=== PATIENT | female | born 1975 | race Hispanic/Latino ===

== ENCOUNTER 2022-03-02 19:44 | Emergency (ER) | payer BC, OTHER ==
[~2022-03-02] VITALS: Ht 157.5 cm; Wt 74.8 kg
[2022-03-02] MEDS ORDERED: KETOROLAC TROMETHAMINE 30 MG/ML VIAL IV STA (20:40)
[2022-03-02] MEDS ORDERED: ONDANSETRON HCL INJ 2MG/ML 2ML 2 MG/ML VIAL IV STA (20:43)
[2022-03-02] MEDS ORDERED: INSULIN REGULAR, HUMAN 100 UNIT/1 ML IV ONE (20:45)
[2022-03-02] MEDS ORDERED: SODIUM CHLORIDE 0.9% 1000ML 1,000 ML IV SCH (20:45)
[2022-03-02] MEDS ORDERED: SODIUM CHLORIDE 0.9% 1000ML 1,000 ML ONE (20:55)
[2022-03-02] MEDS ORDERED: KETOROLAC TROMETHAMINE 30 MG/ML VIAL ONE (20:55)
[2022-03-02] MEDS ORDERED: IOPAMIDOL 370 MG/ML 100 ML INFUS..BTL INJ ONE (21:03)
[2022-03-02] MEDS ORDERED: CEFUROXIME500 MG PO (22:57)
[2022-03-02] MEDS ORDERED: AMLODIPINE BESYL5 MG PO (22:59)
[2022-03-02] MEDS ORDERED: METFORMIN HCL500 MG PO (22:59)
[2022-03-02] MEDS ORDERED: CEFTRIAXONE 1 GM VIAL ONE (23:02)
== END 2022-03-02 23:16 | disposition home or self-care (01) ==
LOC: FSED 20:10
DX: N39.0 Urinary tract infection, site not specified (principal); E11.65 Type 2 diabetes mellitus with hyperglycemia; I10 Essential (primary) hypertension; Z79.84 Long term (current) use of oral hypoglycemic drugs; Z79.899 Other long term (current) drug therapy
CPT/HCPCS: 36415; 74177; 80048; 80076; 81003; 81025; 82948; 85025; 99284; J0696; J1885; J2405; J7030; Q9967